=== PATIENT | female | born 1980 | race Hispanic/Latino ===

== ENCOUNTER → 2017-02-14 | Outpatient (CLI) | payer OTHER ==
[~2017-02-14] VITALS: Ht 149.9 cm; Wt 50.8 kg
[~2017-02-14] MED LIST: MULT1TAB10 PO; NS 1,000 ML IV ONE; PROPOFOL 200 MG/20 ML VIAL As Ordered ONE; [UNRECOGNIZED DRUG - CODE] PO
--- NOTE | 2017-02-14 07:50 | ROOR ---
Patient Name: Cally Marlow Procedure Date: 02/14/2017 7:28 AM Date of : 1980 Age: 37 Room: [facility] Gender: Female Note Status: Finalized Procedure: Colonoscopy Indications: Hematochezia, Family history of colon cancer in a first-degree relative (father <60) Providers: Guanakito AGUILAR MD Referring MD: ADALBERTO GLOVER MD Requesting Provider: Medicines: Monitored Anesthesia Care Complications: No immediate complications. Procedure: Pre-Anesthesia Assessment: - The heart rate, respiratory rate, oxygen saturations, blood pressure, adequacy of pulmonary ventilation, and response to care were monitored throughout the procedure. The Colonoscope was introduced through the anus and advanced to 3 cm into the ileum. The colonoscopy was performed without difficulty. The patient tolerated the procedure well. The quality of the bowel preparation was good. Findings: The perianal and digital rectal examinations were normal. Internal hemorrhoids were found during retroflexion. The hemorrhoids were moderate. The entire examined colon appeared normal on direct and retroflexion views. The terminal ileum appeared normal. Impression: - Internal hemorrhoids. - The entire colon is normal on direct and retroflexion views. - The examined portion of the ileum was normal. - No specimens collected. Recommendation: - Use fiber, for example Citrucel, Fibercon, Konsyl or Metamucil. - Repeat colonoscopy in 5 years for screening purposes. Guanakito Aguilar MD Guanakito AGUILAR MD 02/14/2017 7:50:39 AM This report has been signed electronically. Number of Addenda: 0 Note Initiated On: 02/14/2017 7:28 AM Estimated Blood Loss: Estimated blood loss: none.
[2017-02-14 08:00] VITALS: BP 118/83
== END | disposition home or self-care (01) ==
LOC: M OPP 06:49
PROVIDERS: ATTEND Internal Medicine Gastroenterology
DX: K92.1 Melena (principal); Z80.0 Family history of malignant neoplasm of digestive organs; K64.8 Other hemorrhoids; Z91.018 Allergy to other foods; Z79.899 Other long term (current) drug therapy; Z80.8 Family history of malignant neoplasm of other organs or systems

== ENCOUNTER → 2020-01-26 | Outpatient (REF) | payer OTHER ==
[~2020-01-26] MED LIST changes: -NS 1,000 ML IV ONE; -PROPOFOL 200 MG/20 ML VIAL As Ordered ONE
[2020-01-26 18:50] LABS: CHLAMYDIA DNA AMPLIFICATION NEGATIVE (NEGATIVE); GC DNA AMPLIFICATION NEGATIVE (NEGATIVE)
== END ==
LOC: M SFHCLERA 14:00
PROVIDERS: ATTEND Physician Assistant
DX: R30.0 Dysuria (principal)

== ENCOUNTER 2021-04-15 00:24 | Emergency (ER) | payer OTHER ==
[~2021-04-15] VITALS: Ht 149.9 cm; Wt 52.3 kg
[2021-04-15] MEDS ORDERED: ACET1TAB55 PO (00:46)
[2021-04-15] MEDS ORDERED: NAPR-885 PO (00:46)
[2021-04-15] MEDS ORDERED: METH-1164 PO (00:46)
[2021-04-15] MEDS ORDERED: methylPREDNISolone 125MG 2ML VIAL IV ONE (06:20)
[2021-04-15] MEDS ORDERED: ACETAMINOPHEN 500 MG TAB PO ONE (06:20)
[2021-04-15] MEDS ORDERED: LIDOCAINE 5% (LIDODERM) PATCH TD ONE (06:20)
[2021-04-15] MEDS ORDERED: CYCLOBENZAPRINE 5MG TABLET PO ONE (06:25)
[2021-04-15 07:14] LABS: BASO % 0.3 % (0.0-1.0); EOS # 0.1 10^3/uL (0.0-0.5); EOS % 1.5 % (0.0-3.0); HEMATOCRIT 35.6 % (36.0-47.0); HEMOGLOBIN 12.3 g/dl (12.0-15.5); LYMPH # 1.9 10^3/uL (1.5-5.0); LYMPH % 27.2 % (24.0-44.0); MEAN CORPUSCULAR HEMOGLOBIN 30.1 pg (27.0-33.0); MEAN CORPUSCULAR HGB CONC 34.6 g/dl (32.0-36.5); MEAN CORPUSCULAR VOLUME 87.3 fl (80.0-96.0); MONO # 0.4 10^3/uL (0.0-0.8); MONO % 5.4 % (2.0-8.0); NEUTROPHILS # 4.5 10^3/uL (1.5-8.5); NEUTROPHILS % 65.5 % (36.0-66.0); PLATELET COUNT, AUTOMATED 266 10^3/uL (150-450); RED BLOOD COUNT 4.08 10^6/uL (4.00-5.40); WHITE BLOOD COUNT 6.9 10^3/uL (4.0-10.0)
[2021-04-15 07:46] LABS: CK-MB VALUE MASS 1.7 NG/ML (<3.6); CPK CREATINE PHOSPHOKINASE 123 U/L (26-192); MB/CK RELATIVE INDEX 1.38 (< OR =4); TROPONIN I < 0.02 NG/ML (< 0.10)
[2021-04-15] MEDS ORDERED: KETOROLAC 30 MG/ML 1ML VIAL IV ONE (09:20)
--- NOTE | 2021-04-15 09:34 | REPVR ---
PROCEDURE INFORMATION: Exam: MR Lumbar Spine Without Contrast Exam date and time: 04/15/2021 7:51 AM Age: 41 years old Clinical indication: Pain; Lumbago with sciatica; Right; Additional info: Right low back pain radiating to rle worsening x6 months TECHNIQUE: Imaging protocol: Multiplanar magnetic resonance images of the lumbar spine without intravenous contrast. COMPARISON: No relevant prior studies available. FINDINGS: Vertebrae: There is no fracture or listhesis. There are small, scattered hemangiomas predominating at L2 and L3. Marrow signal is within normal limits. Spinal cord: Normal signal. No cord compression. L1-L2: No significant disc disease. No significant spinal canal stenosis. No neural foraminal stenosis. L2-L3: No significant disc disease. No significant spinal canal stenosis. No neural foraminal stenosis. L3-L4: No significant disc disease. No significant spinal canal stenosis. No neural foraminal stenosis. L4-L5: There is shallow disc bulging. There is mild facet hypertrophy. There is moderate right and [id number] left neural foraminal narrowing. L5-S1: There is a large right subarticular disc protrusion/extrusion. This effaces the right lateral recess and displaces the right S1 nerve root. There is mild facet and ligamentous hypertrophy. There is [id number] bilateral neural foraminal narrowing. Soft tissues: Unremarkable. IMPRESSION: Large right subarticular disc protrusion/extrusion at L5/S1 results in potential compromise of the right S1 nerve root. Electronically signed by: Ayde Spring On 04/15/2021 09:34:30 AM
[2021-04-15] MEDS ORDERED: LIDO5DIS41 TOP (11:32)
[2021-04-15] MEDS ORDERED: PRED20TA PO (11:32)
[2021-04-15 11:56] VITALS: BP 122/70
--- NOTE | 2021-04-15 17:17 | ECGEPIP ---
[facility] - ED Test Date: 2021-04-15 Pat Name: SISSY GARRISON Department: Room: - Gender: Female [employer] Adjuster: Gordy WHITNEY : 1980 Requested By: SISSY Aguirre PA-C Order Number: [id number] Reading MD: Joe Quiñones Measurements Intervals [place] Rate: 67 P: 33 UT: 186 QRS: 10 QRSD: 88 T: 17 QT: 438 QTc: 462 Interpretive Statements Normal sinus rhythm NONSPECIFIC T WAVE ABNORMALITY(S) NO PRIORS FOR COMPARISON Electronically Signed on 04-15-2021 17:16:46 EDT by Joe Quiñones
[2021-04-15] MEDS ORDERED: **NOTE PATIENT COMMENT** MISC XX SCH (21:00)
--- NOTE | 2021-04-18 06:30 | ED PDOC ---
Post-Departure Follow-Up mri ls spine faxed to lottie ferrari for fu Terrell Scott MD Apr 18, 2021 06:30
== END 2021-04-15 11:59 | disposition home or self-care (01) ==
LOC: M ED 00:24
DX: M51.27 Other intervertebral disc displacement, lumbosacral region (principal); R55 Syncope and collapse
CPT/HCPCS: 72148; 80047; 81001; 82550; 82553; 84484; 84702; 85025; 87086; 93005; 96374; 96375; 99284; J1885; J2930

== ENCOUNTER 2021-04-27 15:00 | Emergency (ER) | payer OTHER ==
[~2021-04-27] VITALS: Ht 149.9 cm; Wt 52.3 kg
[~2021-04-27 15:00] MED LIST changes: +ACET1TAB55 PO; +LIDO5DIS41 TOP; +METH-1164 PO; +NAPR-885 PO; +PRED20TA PO
--- NOTE | 2021-04-27 16:23 | REP ---
INDICATION: r calf pain, bed bound recently COMPARISON: None. TECHNIQUE: Real time compression and duplex Doppler interrogation of the right lower extremity deep venous system is performed, including the left common femoral vein.Compression of the right peroneal and posterior tibial veins is performed. FINDINGS: The right common femoral, superficial femoral and popliteal veins are fully compressible with transducer pressure and demonstrate normal spontaneous and phasic flow, without evidence of deep venous thrombosis.The left common femoral vein demonstrates no thrombus.The visualized right peroneal and posterior tibial veins demonstrate no thrombus. IMPRESSION: No evidence of deep venous thrombosis of the right lower extremity femoral popliteal venous system.The visualized right peroneal and posterior tibial veins demonstrate no thrombus. <Electronically signed by Darian Gonsales > 04/27/21 [id number]
[2021-04-27] MEDS ORDERED: diazePAM 10 MG TAB PO ONE (16:55)
[2021-04-27 17:03] LABS: MAGNESIUM LEVEL 2.2 MG/DL (1.8-2.4)
[2021-04-27 17:23] VITALS: BP 112/58
== END 2021-04-27 17:33 | disposition home or self-care (01) ==
LOC: M ED 15:00
DX: M51.27 Other intervertebral disc displacement, lumbosacral region (principal); M79.661 Pain in right lower leg